=== PATIENT | male | born 1980 | race Caucasian/White ===

== ENCOUNTER 2017-05-10 09:39 | Outpatient (CLI) | payer MEDICAID ==
[~2017-05-10] VITALS: Ht 182.9 cm; Wt 161.9 kg
[2017-05-10 09:51] VITALS: BP 130/83
[2017-05-10] MEDS ORDERED: MAGN250T2 PO (10:20)
[2017-05-10] MEDS ORDERED: VITA1CAP PO (10:20)
[2017-05-10] MEDS ORDERED: METF1000 PO (10:20)
[2017-05-10] MEDS ORDERED: FLUT9.9S NS (10:20)
[2017-05-10] MEDS ORDERED: ATOR10TA66 PO (10:20)
[2017-05-10] MEDS ORDERED: TRAM50TA2 PO (10:20)
[2017-05-10] MEDS ORDERED: GLIP10TA13 PO (10:20)
[2017-05-10] MEDS ORDERED: OMEP40CA36 PO (10:20)
[2017-05-10] MEDS ORDERED: DIET75TA31 PO (10:20)
[2017-05-10] MEDS ORDERED: CETI10TA17 PO (10:20)
[2017-05-10] MEDS ORDERED: MULT-35 PO (10:20)
== END 2017-05-10 10:23 | disposition home or self-care (01) ==
LOC: PREOP 09:39
PROVIDERS: ATTEND Orthopaedic Surgery
DX: Z01.818 Encounter for other preprocedural examination (principal); Z11.2 Encounter for screening for other bacterial diseases; S43.431A Superior glenoid labrum lesion of right shoulder, initial encounter; X58.XXXA Exposure to other specified factors, initial encounter
CPT/HCPCS: 87081

== ENCOUNTER 2017-05-18 06:05 | Day surgery (SDC) | payer MEDICAID, OTHER ==
--- NOTE | 2017-05-04 12:44 | HISTORY AND PHYSICAL ---
DICTATING PHYSICIAN: Dr. Zamorano DATE OF ADMISSION: 05/18/2017 Outpatient right shoulder surgery. HISTORY: This is a 37-year-old, mtjba-lnwe-budftcre gentleman with complaints of a several year history of progressively worsening right shoulder pain. He has undergone injections without relief. He reports pain with overhead activities. He denies any specific trauma. He reports weakness in his arm. He denies neck pain. He reports pain anteriorly radiating posteriorly. He underwent an MR arthrogram, which revealed evidence of a slap tear. Due to functional impairment and failure to improve with conservative measures, the patient has elected to proceed with surgical intervention. REVIEW OF SYSTEMS: No chest pain, no shortness of breath. No dysuria. PAST MEDICAL HISTORY: 1. Reflux. 2. Diabetes type 2. 3. Hyperlipidemia. 4. Sleep apnea. PAST SURGICAL HISTORY: EGD. FAMILY HISTORY: Significant for diabetes, hypertension. asthma. Primary care: [facility]. MEDICATIONS: 1. Omeprazole. 2. Glipizide. 3. Metformin. 4. Atorvastatin. 5. Ibuprofen. ALLERGIES: No known drug allergies. SOCIAL HISTORY: The patient smokes 2 packs per week and drinks alcohol socially. PHYSICAL EXAMINATION: Well-developed, well-nourished, in no acute distress. HEENT: Normocephalic, atraumatic. Pupils are equal, round, and reactive light, oropharynx is clear. NECK: Supple. No lymphadenopathy. LUNGS: Clear to auscultation bilaterally. HEART: Regular rate and rhythm. ABDOMEN: Soft, nontender, nondistended. EXTREMITY EXAM: The right shoulder demonstrates no skin lesions or atrophy. Sensation is intact throughout his right upper extremity. He has a negative Spurling's maneuver positive Neer and Rey sign. Positive Wirt maneuver, which reproduces symptoms with anterior apprehension, relieved with relocation. Active forward elevation, external and internal rotation are symmetric to the contralateral side. IMPRESSION: Right shoulder SLAP tear. PLAN: Right shoulder arthroscopic biceps tenotomy. The risks, benefits, options, ramifications and recovery were discussed at length the patient. He understands wishes to proceed. Job ID: [id number] Dictated Date: 05/04/2017 11:07:33 Kitchen Lead Date: 05/04/2017 12:36:12/jean marie
[~2017-05-18] VITALS: Ht 182.9 cm; Wt 161.9 kg
[~2017-05-18 06:05] MED LIST: ATOR10TA66 PO; CETI10TA17 PO; DIET75TA31 PO; FLUT9.9S NS; GLIP10TA13 PO; MAGN250T2 PO; METF1000 PO; MULT-35 PO; OMEP40CA36 PO; TRAM50TA2 PO; VITA1CAP PO
--- OUTSIDE RECORDS SUMMARY | 2017-05-18 06:10 | XMS REPORT ---
Author Author SANDOVAL BUTCHER Organization e[employer] Address Unknown Phone Unavailable Care Team Providers Care Natural Gas Technician Name Role Phone SANDOVAL BUTCHER CP Unavailable Allergies No Known Allergies Problems Problem Type Condition Code Onset Dates Condition Status Problem Other hyperlipidemia E78.4 Active Problem Gastroesophageal reflux disease without esophagitis K21.9 Active Problem Type 2 diabetes mellitus without complication, without long-term current use of insulin E11.9 Active Medications No Known Medications Results No Known Results Summary Purpose eClinicalWorks Submission
--- OUTSIDE RECORDS SUMMARY | 2017-05-18 06:11 | XMS REPORT ---
Author MAGDA [facility] [place] eClinical[employer] Address Unknown Phone Unavailable Care Team Providers Care County Supervisor Name Role Phone MAGDA BARCENAS CP Unavailable Allergies No Known Allergies Problems Problem Type Condition Code Onset Dates Condition Status Problem Other hyperlipidemia E78.4 Active Problem Gastroesophageal reflux disease without esophagitis K21.9 Active Problem Type 2 diabetes mellitus without complication, without long-term current use of insulin E11.9 Active Medications Medication Code System Code Instructions Start Date End Date Status Dosage GlipiZIDE [facility] [address]-07 10 mg Orally twice a day 2 tablet Results No Known Results Summary Purpose eClinicalWorks Submission
--- OUTSIDE RECORDS SUMMARY | 2017-05-18 06:11 | XMS REPORT ---
Author Author [facility]DA [facility] [place] Address [address] [place] [address] Care Team Providers Care Sales Solutions Associate Name Role Phone MAGDA BARCENAS Unavailable PROBLEMS Type Condition ICD9-CM Code [id number] Code Onset Dates Condition Status SNOMED Code Problem Type 2 diabetes mellitus without complication, without long-term current use of insulin E11.9 Active 981839300 Problem Other hyperlipidemia E78.4 Active 37870267 Problem Gastroesophageal reflux disease without esophagitis K21.9 Active 061147848 ALLERGIES Unknown Allergies SOCIAL HISTORY No smoking Hx information available PLAN OF CARE VITAL SIGNS MEDICATIONS Medication Instructions Dosage Frequency Start Date End Date Duration Status GlipiZIDE 10 mg Orally twice a day 2 tablet 12h 30 days Active RESULTS No Results PROCEDURES No Known procedures IMMUNIZATIONS No Known Immunizations
--- OUTSIDE RECORDS SUMMARY | 2017-05-18 06:11 | XMS REPORT ---
Author Author MAGDA BARCENAS [facility] eClinicalWorks Address Unknown Phone Unavailable Care Team Providers Care Inspector Watch Parts Name Role Phone MAGDA BARCENAS CP Unavailable [...]
--- OUTSIDE RECORDS SUMMARY | 2017-05-18 06:11 | XMS REPORT ---
Author Author MAGDA BARCENAS [employer] Address Unknown Phone Unavailable Care Team Providers Care Millwright Apprentice Name Role Phone MAGDA BARCENAS Unavailable Allergies, Adverse Reactions, Alerts Substance Reaction Event Type N.K.D.A. Info Not Available Non Drug Allergy Problems Problem Type Condition Code Onset Dates Condition Status Problem Other hyperlipidemia E78.4 Active Problem Gastroesophageal reflux disease without esophagitis K21.9 Active Problem Type 2 diabetes mellitus without complication, without long-term current use of insulin E11.9 Active Assessment Gastroesophageal reflux disease without esophagitis K21.9 Active Assessment Rash R21 Active Assessment Type 2 diabetes mellitus without complication, without long-term current use of insulin E11.9 Active Assessment Other hyperlipidemia E78.4 Active Medications Medication Code System Code Instructions Start Date End Date Status Dosage Atorvastatin Calcium [facility] [address]-44 10 mg Orally Once a week 1 tablet Metformin HCl [facility] [address]-84 1000 MG Orally Twice a day 1 tablet with meals Vitamin B-6 [facility] [address]-74 100 MG Orally Once a day 1 tablet Multi Vitamin Daily [facility] 463[address] - Orally Once a day 1 tablet GlipiZIDE [facility] [address]-89 10 mg Orally twice a day 2 tablet Omeprazole [facility] [address]-38 20 MG Orally Once a day 2 capsules Aspirin [facility] [address]-81 81 MG Orally Once a day 1 tablet Vitamin C [facility] [address]-35 1000 MG Orally Once a day 1 tablet R49-Qpamtp [facility] [address]7464-98709 1 MG Orally not defined Fish Oil [facility] [address]-63 1000 MG Orally Once a day 1 capsule Trulicity [facility] [address]-42 0.75 MG/0.5ML Subcutaneous once weekly April 0.5 ml Ketoconazole [facility] [address]-52 2 % Externally Once a day April 28, 2016 May 18, 2016 1 application to affected area Procedures Procedure Coding System Code Date Office Visit, New Pt., Level 4 CPT-4 87514 April 28, 2016 GLYCATED HEMOGLOBIN TEST CPT-4 26562 April 28, 2016 Vital Signs Date/Time: April 28, 2016 Cardiac Monitoring Heart Rate 88 bpm Weight 379.3 lbs Height 71.0 in BMI 52.90 Index Blood Pressure Diastolic 80 mmHg Blood Pressure Systolic 140 mmHg Results No Known Results Summary Purpose eClinicalWorks Submission
--- OUTSIDE RECORDS SUMMARY | 2017-05-18 06:11 | XMS REPORT ---
Author Author MAGDA BARCENAS [facility] eClinicalWorks Address Unknown Phone Unavailable Care Team Providers Care Truck Trailer Final Inspector Name Role Phone MAGDA BARCENAS CP Unavailable [...]
--- OUTSIDE RECORDS SUMMARY | 2017-05-18 06:11 | XMS REPORT ---
Author Author MAGDA BARCENAS [facility] eClinicalWorks Address Unknown Phone Unavailable Care Team Providers Care Machine Splitter Name Role Phone MAGDA BARCENAS CP Unavailable [...]
--- OUTSIDE RECORDS SUMMARY | 2017-05-18 06:12 | XMS REPORT ---
Author Author MAGDA BARCENAS [facility] Address [address] [place] [address] Care Team Providers Care Legal Instruments Examiner Name Role Phone MAGDA BARCENAS Unavailable PROBLEMS Type Condition ICD9-CM Code [id number] Code Onset Dates Condition Status SNOMED Code Problem Type 2 diabetes mellitus without complication, without long-term current use of insulin E11.9 Active 503220453 Problem Other hyperlipidemia E78.4 Active 11688475 Problem Gastroesophageal reflux disease without esophagitis K21.9 Active 686106708 ALLERGIES Unknown Allergies SOCIAL HISTORY No smoking Hx information available PLAN OF CARE VITAL SIGNS MEDICATIONS Unknown Medications RESULTS No Results PROCEDURES No Known procedures IMMUNIZATIONS No Known Immunizations
--- OUTSIDE RECORDS SUMMARY | 2017-05-18 06:12 | XMS REPORT ---
Author Author SANDOVAL BUTCHER [employer] Address Unknown Phone Unavailable Care Team Providers Care Rand Maker Name Role Phone SANDOVAL BUTCHER CP Unavailable Allergies, Adverse Reactions, Alerts Substance Reaction Event Type N.K.D.A. Info Not Available Non Drug Allergy Problems Problem Type Condition Code Onset Dates Condition Status Problem Other hyperlipidemia E78.4 Active Problem Gastroesophageal reflux disease without esophagitis K21.9 Active Problem Type 2 diabetes mellitus without complication, without long-term current use of insulin E11.9 Active Assessment Gastroesophageal reflux disease without esophagitis K21.9 Active Assessment Acute diffuse otitis externa of left ear H60.312 Active Assessment Type 2 diabetes mellitus without complication, without long-term current use of insulin E11.9 Active Assessment Other hyperlipidemia E78.4 Active Medications Medication Code System Code Instructions Start Date End Date Status Dosage Atorvastatin Calcium [facility] [address]-25 10 mg Orally Once a week 1 tablet Cortisporin [facility] [address]-50 3.5-64707-4 Otic Three times a day Aug 04, 2016 4 drops into left ear Multi Vitamin Daily [facility] [address] - Orally Once a day 1 tablet Metformin HCl [facility] [address]-15 1000 MG Orally Twice a day 1 tablet with meals Vitamin B-6 [facility] [address]-40 100 MG Orally Once a day 1 tablet Aspirin [facility] [address]-63 81 MG Orally Once a day 1 tablet GlipiZIDE [facility] [address]-44 10 mg Orally twice a day 2 tablet Vitamin C [facility] [address]-88 1000 MG Orally Once a day 1 tablet Ranitidine HCl [facility] [address]-88 300 MG Orally Once a day Aug 04, 2016 1 tablet at bedtime Trulicity [facility] [address]-72 0.75 MG/0.5ML Subcutaneous once weekly 0.5 ml Procedures Procedure Coding System Code Date Office Visit, Est Pt., Level 4 CPT-4 47736 Aug 04, 2016 GLYCATED HEMOGLOBIN TEST CPT-4 16801 Aug 04, 2016 Vital Signs Date/Time: Aug 04, 2016 Cardiac Monitoring Heart Rate 76 bpm Weight 348.0 lbs Height 71.0 in BMI 48.53 Index Blood Pressure Diastolic 80 mmHg Blood Pressure Systolic 130 mmHg Results No Known Results Summary Purpose eClinicalWorks Submission
--- OUTSIDE RECORDS SUMMARY | 2017-05-18 06:12 | XMS REPORT ---
Author Author GABRIELA MARES Organization [facility] Address [address] [place] [address] Care Team Providers Care Research Assistant Member Name Role Phone GABRIELA MARES Unavailable PROBLEMS Type Condition ICD9-CM Code CDO14-PL Code Onset Dates Condition Status SNOMED Code Problem Type 2 diabetes mellitus without complication, without long-term current use of insulin E11.9 Active 626734232 Problem Other hyperlipidemia E78.4 Active 10336931 Problem Gastroesophageal reflux disease without esophagitis K21.9 Active 959453052 Assessment Chronic venous insufficiency I87.2 May, Active 50994745 ALLERGIES Substance Reaction Event Type Date Status N.K.D.A. Unknown Non Drug Allergy May, Unknown SOCIAL HISTORY No smoking Hx information available PLAN OF CARE VITAL SIGNS Height 71.0 in 2016-06-09 Weight 352.0 lbs 2016-06-09 Heart Rate 75 bpm 2016-06-09 Respiratory Rate 18 2016-06-09 BMI 49.09 kg/m2 2016-06-09 Blood pressure systolic 124 mmHg 2016-06-09 Blood pressure diastolic 80 mmHg 2016-06-09 MEDICATIONS Medication Instructions Dosage Frequency Start Date End Date Duration Status Trulicity 0.75 MG/0.5ML Subcutaneous once weekly 0.5 ml 90 days Active GlipiZIDE 10 mg Orally twice a day 2 tablet 12h 30 days Active Vitamin B-6 100 MG Orally Once a day 1 tablet 24h Active Atorvastatin Calcium 10 mg Orally Once a week 1 tablet Active Multi Vitamin Daily - Orally Once a day 1 tablet 24h Active Metformin HCl 1000 MG Orally Twice a day 1 tablet with meals 12h Active Aspirin 81 MG Orally Once a day 1 tablet 24h Active Omeprazole 20 MG Orally Once a day 2 capsules 24h Active Vitamin C 1000 MG Orally Once a day 1 tablet 24h Active RESULTS Name Result Date Reference Range TSH 2016-06-09 TSH 1.180 0.450-4.500 CBC 2016-06-09 WBC 7.0 3.4-10.8 RBC 4.73 4.14-5.80 Hemoglobin 13.8 12.6-17.7 Hematocrit 41.5 37.5-51.0 MCV 88 79-97 MCH 29.2 26.6-33.0 MCHC 33.3 31.5-35.7 RDW 13.7 12.3-15.4 Platelets 236 150-379 Neutrophils 66 Lymphs 24 Monocytes 7 Eos 3 Basos 0 Immature Cells Neutrophils (Absolute) 4.5 1.4-7.0 Lymphs (Absolute) 1.7 0.7-3.1 Monocytes(Absolute) 0.5 0.1-0.9 Eos (Absolute) 0.2 0.0-0.4 Baso (Absolute) 0.0 0.0-0.2 Immature Granulocytes 0 Immature Grans (Abs) 0.0 0.0-0.1 NR Hematology Comments: LIPID PANEL 2016-06-09 Cholesterol, Total 141 100-199 Triglycerides 121 0-149 HDL Cholesterol 38 >39 VLDL Cholesterol Jonas 24 5-40 LDL Cholesterol Calc 79 0-99 Comment: CMP 2016-06-09 Glucose, Serum 130 65-99 BUN 13 6-20 Creatinine, Serum 0.64 0.76-1.27 eGFR If NonAfricn Am 127 >59 eGFR If Africn Am 147 >59 BUN/Creatinine Ratio 20 8-19 Sodium, Serum 139 134-144 Potassium, Serum 4.4 3.5-5.2 Chloride, Serum 101 97-108 Carbon Dioxide, Total 20 18-29 Calcium, Serum 9.2 8.7-10.2 Protein, Total, Serum 7.0 6.0-8.5 Albumin, Serum 4.1 3.5-5.5 Globulin, Total 2.9 1.5-4.5 A/G Ratio 1.4 1.1-2.5 Bilirubin, Total 0.3 0.0-1.2 Alkaline Phosphatase, S 80 39-117 AST (SGOT) 42 0-40 ALT (SGPT) 48 0-44 PROCEDURES Procedure Date Ordered Related Diagnosis Body Site ROUTINE VENIPUNCTURE 2016-06-09 N/A ASSAY THYROID STIM HORMONE Jun 09, 2016 Office Visit, Est Pt., Level 4 Jun 09, 2016 LIPID PANEL Jun 09, 2016 COMPLETE CBC W/AUTO DIFF WBC Jun 09, 2016 VENIPUNCT, ROUTINE* Jun 09, 2016 COMPREHEN METABOLIC PANEL Jun 09, 2016 IMMUNIZATIONS No Known Immunizations
[2017-05-18] MEDS: LACTATED RINGERS 1,000 ML IV SCH ×2 (06:20→08:00)
[2017-05-18 06:25] VITALS: BP 125/81
[2017-05-18] MEDS ORDERED: ceFAZolin 1 GM/NS 50 ML IVPB IV ONE ×2 (06:30)
[2017-05-18] MEDS ORDERED: CATHETER FLUSH 10 ML SYR IV PRN (06:30)
[2017-05-18] MEDS ORDERED: LACTATED RINGERS 1,000 ML IV ONE ×2 (06:36→08:29)
[2017-05-18] MEDS ORDERED: LIDOCAINE PF 2% 5 ML (XYLOCAINE) VIAL ONE (06:36)
[2017-05-18] MEDS ORDERED: SEVOFLURANE (ULTANE) 15 ML INHAL SOLN ONE ×6 (06:36→08:53)
[2017-05-18] MEDS ORDERED: fentaNYL INJECTION 100 MCG/2 ML AMP ONE (06:36)
[2017-05-18] MEDS ORDERED: MIDAZOLAM 2 MG/2 ML (VERSED) VIAL ONE (06:36)
[2017-05-18] MEDS ORDERED: proPOfol 200 MG/20 ML (DIPRIVAN) VIAL IV ONE ×2 (06:36→08:53)
[2017-05-18] MEDS ORDERED: ONDANSETRON 4 MG/2 ML (SDV) Z0FRAN ONE (06:36)
[2017-05-18] MEDS ORDERED: ROCURONIUM 50 MG/5 ML (ZEMURON) VIAL IV ONE (06:36)
[2017-05-18] MEDS ORDERED: SUCCINYLCHOLINE INJ 100 MG/5 ML SYR ONE (06:36)
[2017-05-18] MEDS ORDERED: FAMOTIDINE 20MG/2ML IV (PEPCID) ONE (06:50)
--- NOTE | 2017-05-18 07:31 | Progress Note-Pre Operative ---
Pre-Operative Progress Note H&P Reviewed The H&P was reviewed, patient examined and no changes noted. Date Seen by Provider: May 18, 2017 Time Seen by Provider: 07:20 Date H&P Reviewed: May 18, 2017 Time H&P Reviewed: 07:01 Pre-Operative Diagnosis: right shoulder SLAP tear KOURTNEY HUMMEL MD May 18, 2017 07:31
--- NOTE | 2017-05-18 07:32 | Progress Note-Post Operative ---
Post-Operative Progess Note Surgeon (s)/Chief Airline Radio Operator (s) Surgeon KOURTNEY HUMMEL MD Chief Airline Radio Operator: Christiano Norman Pre-Operative Diagnosis right shoulder SLAP tear Post-Operative Diagnosis right shoulder SLAP tear and labral tear Procedure & Operative Findings Date of Procedure 05/18/17 Procedure Performed/Findings right shoulder arthroscopic biceps tenotomy and labral debridement Anesthesia Type GETA Estimated Blood Loss Estimated blood loss (mL): minimal Specimens/Packing Specimens Removed none Packing: none KOURTNEY HUMMEL MD May 18, 2017 07:32
[2017-05-18] MEDS ORDERED: NEOSTIGMINE (BLOXIVERZ ) 1 MG/1ML 10 ML VIAL ONE (08:29)
[2017-05-18] MEDS ORDERED: GLYCOPYRROLATE 0.2 MG/ML (ROBINUL) 2 ML VIAL ONE (08:29)
[2017-05-18] MEDS ORDERED: ALBUTEROL INHALER HFA (VENTOLIN HFA) 8 GM IH ONE (08:53)
[2017-05-18] MEDS ORDERED: MEPERIDINE (DEMEROL) INJ 50 MG/ML IVP PRN (09:00)
[2017-05-18] MEDS ORDERED: morphine INJ 10 MG/ML 1ML (SYR OR VIAL) IVP PRN (09:00)
[2017-05-18] MEDS ORDERED: ONDANSETRON 4 MG/2 ML (SDV) Z0FRAN IVP PRN (09:00)
[2017-05-18] MEDS ORDERED: BUPIVACAINE 0.25% 30 ML (SENSORCAINE) VIAL INJ ONE (09:15)
[2017-05-18] MEDS ORDERED: morphine INJ 10 MG/ML 1ML (SYR OR VIAL) SC ONE (09:15)
[2017-05-18] MEDS ORDERED: HYDR-3816 PO (09:24)
[2017-05-18 09:50] VITALS: BP 114/74
[2017-05-18] MEDS: HYDROcodone/APAP 7.5 MG/325 MG (LORTAB, LORCET PLUS) TABLET PO PRN ×3 (09:59→10:36)
[2017-05-18 10:20] VITALS: BP 109/61
[2017-05-18 10:30] VITALS: BP 109/61
[2017-05-18] MEDS ORDERED: HYDROcodone/APAP 7.5 MG/325 MG (LORTAB, LORCET PLUS) TABLET PO ONE (10:30)
--- NOTE | 2017-05-18 12:13 | OPERATIVE REPORT ---
DATE OF SERVICE: 05/18/2017 PREOPERATIVE DIAGNOSIS: Right shoulder SLAP tear. POSTOPERATIVE DIAGNOSIS: 1. Right shoulder SLAP tear. 2. Right shoulder labral tear. PROCEDURES: 1. Right shoulder arthroscopic biceps tenotomy. 2. Right shoulder arthroscopic labral debridement. SURGEON: Ollie Hummel MD. GIZZARD PULLER: Christiano Norman, who assisted throughout the procedure and closed the incisions. ANESTHESIA: General endotracheal by Christiano Chavez CRNA. ESTIMATED BLOOD LOSS: Minimal. DRAINS: None. COMPLICATIONS: None. POSTOPERATIVE PLAN: Sling wear for comfort and progressive range of motion as symptoms allow. The patient was transported to the recovery room awake and in stable condition. STATEMENT OF MEDICAL NECESSITY: The patient is a 37-year-old right hand dominant gentleman with complaints of right shoulder pain, worse with overhead activities who appeared to have positive Clare's maneuver, pain with apprehension. MR arthrogram confirmed right shoulder SLAP tear and due to functional impairment and failure to improve with conservative measures, the patient elected to proceed with surgical intervention. Examination under anesthesia revealed forward elevation of 170 degrees, external rotation of 85 degrees and internal rotation of 70 degrees. Arthroscopic findings demonstrated type 2 SLAP tear. In addition, there was a posterior labral tear from the 10-11 o'clock position. This was a flap and did not extend into the capsulolabral junction. The remainder of the labrum was intact. There was no significant glenoid or chondral wear. The rotator cuff was intact throughout. PROCEDURE: After risks and benefits of the procedure were discussed and questions were answered, informed consent was signed and placed on the chart. The operative site was confirmed in the preoperative holding area, initialed by the surgeon. The patient was then transported to the operating room and after adequate levels of general endotracheal anesthetic were obtained, a timeout was called, confirming the operative site. The patient was then carefully placed in the beach chair position and the right shoulder and upper extremity were prepped and draped in the usual sterile fashion. The right shoulder was injected with 20 mL of fluid and a standard posterior portal was placed under direct visualization. An anterior portal was created in the interval between the biceps, subscapularis and glenoid. The biceps anchor was released and the stump was debrided with a shaver. The posterior labral flap tear was re-debrided with the shaver back to a stable edge. The shoulder joint was copiously irrigated and the portal sites were closed with 4-0 nylon in a simple interrupted fashion. The shoulder was injected with Duramorph. The port sites were infiltrated with plain Marcaine. A soft dressing and sling were applied and patient was transported to the recovery room awake and in stable condition. Job ID: [id number] DocumentID: [id number] Dictated Date: 05/18/2017 08:42:05 Sales Agent Food Vending Service Date: 05/18/2017 12:12:45 Dictated By: OLLIE HUMMEL MD
== END 2017-05-18 10:38 | disposition home or self-care (01) ==
LOC: SDC 06:05
PROVIDERS: ATTEND Orthopaedic Surgery
DX: S43.431A Superior glenoid labrum lesion of right shoulder, initial encounter (principal); K21.9 Gastro-esophageal reflux disease without esophagitis; E11.9 Type 2 diabetes mellitus without complications; E78.5 Hyperlipidemia, unspecified; G47.33 Obstructive sleep apnea (adult) (pediatric); Z79.899 Other long term (current) drug therapy; F17.210 Nicotine dependence, cigarettes, uncomplicated; E66.01 Morbid (severe) obesity due to excess calories; Z68.42 Body mass index [BMI] 45.0-49.9, adult
CPT/HCPCS: 82962